=== PATIENT | male | born 1950 | race Caucasian/White ===

== ENCOUNTER 2018-07-10 12:15 | Outpatient (CLI) | payer MEDICARE | END 2018-07-10 12:16 | disposition home or self-care (01) | LOC: ULT 12:15 | PROVIDERS: ATTEND Family Medicine | DX: R42 Dizziness and giddiness (principal); R06.02 Shortness of breath; I08.8 Other rheumatic multiple valve diseases | CPT/HCPCS: 93306 ==

== ENCOUNTER 2018-10-26 20:17 | Inpatient (IN) | payer MEDICARE ==
[2018-10-26] MEDS ORDERED: Enoxaparin Sodium 80 MG/0.8 ML SYRINGE ONE (21:13)
[2018-10-26 22:20] LABS: CKMB 0.7 ng/mL (0-6.6)
[2018-10-27 00:14] VITALS: BMI 27.5
[2018-10-27] MEDS ORDERED: Acetaminophen 325 MG TAB PO PRN (00:40)
[2018-10-27] MEDS ORDERED: Ondansetron ODT 4 MG TAB SL PRN (00:40)
[2018-10-27] MEDS ORDERED: Ondansetron PF 4 MG/2 ML Vial IVP PRN (00:40)
[2018-10-27 01:00] LABS: Troponin I 0.196 ng/mL (< 0.028)
[2018-10-27 05:29] LABS: Troponin I 0.169 ng/mL (< 0.028)
[2018-10-27] MEDS ORDERED: Levothyroxine Sodium 100 MCG TAB PO SCH (09:00)
--- NOTE | 2018-10-27 09:27 | HP ---
PRIMARY CARE PHYSICIAN: Maicol Rowell MD CHIEF COMPLAINT: Abdominal pain and dark stools, found to have abnormal cardiac enzymes. HISTORY OF PRESENT ILLNESS: This is a 67-year-old gentleman with a history of skin cancer, history of squamous cell throat cancer, hyperlipidemia, and hypothyroidism, who presented to the emergency department last night with complaints of persistent abdominal pain, occasional loose stool and black stool. Of note, the patient was seen by his primary care physician on 10/11/2018. For an ear infection, he was prescribed cefdinir and ear drops at that time. From the antibiotics, he developed abdominal pain, black stool, and diarrhea as well as fever. He finished those antibiotics about 9 days ago, but continued to have this symptoms. He presented to the emergency department late last night. Evaluation was done. Per the emergency room physician, the guaiac stool was negative. His abdomen was benign, but he did have elevated troponins and abnormal EKG. He has a strong family history of heart disease as well as his hyperlipidemia and he is now being admitted for non-ST elevation LA. PAST MEDICAL HISTORY: Hyperlipidemia, skin cancer, throat cancer status post radiation therapy, and hypothyroidism. MEDICATIONS: Include; 1. Crestor 5 mg daily. 2. Synthroid 100 mcg daily. PAST SURGICAL HISTORY: Appendectomy and tonsillectomy. FAMILY HISTORY: Father from myocardial infarction at age 72. Brother with LA at 68. Uncle with an LA at 69. 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 Quit smoking in 2008 after smoking for 20 years. Rare alcohol. 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 REVIEW OF SYSTEMS: As per the History of Present Illness. GENERAL: He denies any fevers or chills at this time. HEENT: Recent ear infection, doing much better. No headache. CARDIAC: He denies chest pain, shortness of breath, or palpitations. PULMONARY: He denies cough or hemoptysis. GASTROINTESTINAL: As per the History of Present Illness with recent episode of abdominal pain, diarrhea, and dark stool. GASTROINTESTINAL: Denies dysuria or hematuria. NEUROLOGIC: Denies weakness, seizure, or syncope. PHYSICAL EXAMINATION: VITAL SIGNS: Temperature 98.1, pulse of 69, respirations 18, blood pressure 128/74, and pulse ox is 96% on room air. GENERAL: He is awake and alert, in no acute distress. Speech is clear. NECK: Supple with postsurgical changes. HEART: Regular rate and rhythm without murmurs. LUNGS: Clear bilaterally. ABDOMEN: Soft, nontender, and nondistended. EXTREMITIES: No clubbing, cyanosis, or edema. 2+ peripheral pulses bilaterally. NEUROLOGIC: Cranial nerves II through XII are grossly intact. LABORATORY DATA: Troponin I #1 is 0.213, #2 is 0.196, and #3 is 0.169. White blood cell count 9.0, hemoglobin and hematocrit 13.9 and 42.2, and platelets of 144. PT and PTT were normal. Sodium 136, potassium 4.2, chloride 101, CO2 of 25, BUN and creatinine of 12 and 1.22 with a GFR of 59, lactate of 1.4. Last total cholesterol was 249 with an LDL of 175, HDL of 39. TSH most recently was 2.1. IMAGING DATA: Abdominal and pelvic CT done in [place] revealed normal with no acute changes. Echocardiogram done in June of 2018 revealed ejection fraction of 40% to 45%, global hypokinesis, mild mitral regurgitation, mild tricuspid regurgitation, otherwise stable. ASSESSMENT AND PLAN: This is a 67-year-old gentleman with a remote history of a 20-to 30-pack smoking history, strong family history of heart disease as well as hyperlipidemia, now with evidence of a non-ST elevation myocardial infarction. 1. Non-ST elevation myocardial infarction. Cardiology is being consulted. We will keep the patient n.p.o. in case we were able to do a heart catheterization today for further risk stratification. 2. Hyperlipidemia. We will continue Crestor. May need to increase dosage if catheterization is positive for coronary artery disease. 3. Hypothyroidism. We will continue his replacement. Job ID: [id number]
--- NOTE | 2018-10-27 18:34 | NM ---
CARDIAC SPECT: History: 61-year-old male with elevated troponin, hypercholesterolemia. Former smoker. Technique: Myocardial perfusion scan was performed after the intravenous administration of Technetium 99M Sestamibi. 9 mCi was administered for the rest exam followed by 27 mCi for stress study. Exercis e stress portion of the study was monitored by Dr. White. FINDINGS: Fixed defect is seen in the inferior lateral wall. No reversible defects are identified. LVEF is 40%. There is Inferolateral wall hypokinesis. IMPRESSION: No evidence of reversible ischemia. POS: ARLIN
[2018-10-27] MEDS ORDERED: Communication Order-Pharmacy FS SCH (19:00)
--- NOTE | 2018-10-27 19:49 | CON ---
DATE OF CONSULTATION: HISTORY OF PRESENT ILLNESS: The patient is a 67-year-old gentleman, who was admitted with abdominal discomfort and found to have an abnormal troponin level. The patient has no previous cardiac history. He states that he recently had an earache and he was started on antibiotics. He subsequently developed dark tarry stool and abdominal discomfort. He presented to the emergency room and he was noted to have slightly elevated troponin level and admitted for further evaluation. The patient denies any history of chest discomfort. The patient denies having any dyspnea. The patient does have several cardiac risk factors including dyslipidemia and a strong family history of coronary artery disease. PAST MEDICAL HISTORY: 1. Dyslipidemia. 2. History of throat carcinoma. 3. Thyroid disorder. PAST SURGICAL HISTORY: 1. Appendectomy. 2. Tonsillectomy. SOCIAL HISTORY: Nonsmoker. FAMILY HISTORY: Strong family history of coronary artery disease. ALLERGIES: COCONUT, LIPITOR, AND ERYTHROMYCIN. REVIEW OF SYSTEMS: Ten-point system is otherwise unremarkable except for diarrhea, dark stool, and low-grade fever. PHYSICAL EXAMINATION: GENERAL: This is a well-developed gentleman, in no acute distress. VITAL SIGNS: Blood pressure 135/70. NECK: No jugular venous distention. LUNGS: Clear to auscultation. HEART: Regular rate and rhythm. Normal S1, S2. No murmurs. ABDOMEN: Nondistended. EXTREMITIES: No edema. VASCULAR: Radial pulses are 2+. LABORATORY AND DIAGNOSTIC RESULTS: Sodium 136, potassium 4.2, chloride 101, bicarbonate 25, BUN 12, creatinine 1.2. Troponin was 0.213 with an MB of 0.7. His EKG revealed him to have normal sinus rhythm with an incomplete right bundle branch and Q-wave suggestive of previous inferior infarct. IMPRESSION: 1. Abdominal discomfort. 2. Indeterminate troponin with normal CPK-MB. 3. History of mild decrease in left ventricular systolic function on echocardiogram. 4. Abnormal ECG suggestive of previous inferior infarct. 5. Dyslipidemia. 6. History of tobacco abuse. This gentleman presents with abdominal discomfort and has an indeterminate troponin level. There is suggestive evidence of an old inferior infarct on his electrocardiogram. This patient is asymptomatic and would recommend stress testing to delineate his left ventricular function if there is no any evidence of ischemia. The patient should continue on low-dose aspirin. PLAN: Proceed with Cardiolite stress testing. Job ID: [id number] [facility]
[2018-10-27] MEDS: Rosuvastatin 10 MG TAB PO SCH (20:31)
[2018-10-27] MEDS ORDERED: Rosuvastatin 5 MG TAB PO SCH (21:00)
[2018-10-28] MEDS: Lisinopril 2.5 MG TAB PO SCH (05:04)
[2018-10-28] MEDS: Levothyroxine Sodium 100 MCG TAB PO SCH (05:04)
[2018-10-28] MEDS: Carvedilol 3.125 MG TAB PO SCH ×2 (05:05→17:48)
[2018-10-28] MEDS: Aspirin Chewable 81 MG TAB PO SCH (05:05)
[2018-10-28] MEDS ORDERED: Iopamidol 370 76% 100 ML VIAL ONE (07:26)
[2018-10-28] MEDS ORDERED: Iopamidol 370 76% 50 ML VIAL FS ONE (07:26)
[2018-10-28] MEDS ORDERED: Midazolam HCl 2 mg/2 ml Vial ONE (09:04)
[2018-10-28] MEDS ORDERED: Heparin 10,000 UNITS/1 ML VIAL ONE (09:42)
[2018-10-28] MEDS ORDERED: Nitroglycerin 100MG/250ML BOT 250 ML ONE (09:42)
[2018-10-28] MEDS ORDERED: TICAGRELOR 90 MG TABLET ONE (09:50)
[2018-10-28] MEDS ORDERED: Morphine 2 MG/ML SYRINGE SLOW IVP PRN (10:08)
[2018-10-28] MEDS ORDERED: Nitroglycerin 0.4 MG TAB (25 Tab Bottle) SL PRN (10:08)
[2018-10-28] MEDS ORDERED: Sodium Chloride 0.9% 1,000 ML IV SCH (10:15)
--- NOTE | 2018-10-28 12:15 | PRG ---
DATE OF SERVICE: 10/28/2018 SUBJECTIVE: Mr. Mejia has successfully undergone cardiac cath with stent procedure done a few minutes ago. He reports he is feeling well. No medical complaints, otherwise noted. OBJECTIVE: LUNGS: Clear. HEART: Reveals a regular rate and rhythm. No murmurs, gallops, or rubs. IMPRESSION: Atherosclerotic coronary artery disease, status post stent placement. PLAN: The patient will be maintained in the hospital per Cardiology and will be discharged safely. Job ID: [id number]
[2018-10-28] MEDS: Acetaminophen 325 MG TAB PO PRN (17:31)
[2018-10-28 18:05] LABS: #Eosinphils 0.1 thou/uL (0.0-0.7); #Lymphocytes 0.5 thou/uL (1.20-3.40); #Monocytes 0.5 thou/uL (0.11-0.59); %Eosinophils 1.6 % (0.0-10.0); %Lymphocytes 6.1 % (21.0-51.0); %Monocytes 6.4 % (0.0-10.0); %Neutrophils 85.9 % (42.0-75.0); Hemoglobin 14.1 g/dL (14.0-18.0); Mean Corpuscular HGB CONC 33.5 g/dL (32.0-36.0); Mean Corpuscular Hemoglobin 27.5 pg (27.0-31.0); Mean Corpuscular Volume 82.1 fL (78.0-98.0); Mean Platelet Volume 7.4 fL (7.4-10.4); Platelet Count 136 thou/uL (130-400); RBC Distribution Width 15.1 % (11.5-14.5); Red Blood Cell (RBC) Count 5.12 mill/uL (4.70-6.10); White Blood Cell (WBC) Count 8.2 thou/uL (4.8-10.8)
[2018-10-28] MEDS: Rosuvastatin 10 MG TAB PO SCH (21:34)
[2018-10-29] MEDS: Acetaminophen 325 MG TAB PO PRN (02:32)
[2018-10-29] MEDS ORDERED: Sodium Chloride 0.9% 1,000 ML IV SCH ×2 (04:15→05:00)
[2018-10-29 05:09] LABS: #Eosinphils 0.1 thou/uL (0.0-0.7); #Lymphocytes 0.6 thou/uL (1.20-3.40); #Monocytes 0.5 thou/uL (0.11-0.59); #Neutrophils 5.6 thou/uL (1.40-6.50); %Basophils 0.2 % (0.0-1.0); %Lymphocytes 8.1 % (21.0-51.0); %Monocytes 7.8 % (0.0-10.0); %Neutrophils 82.9 % (42.0-75.0); Hemoglobin 12.9 g/dL (14.0-18.0); Mean Corpuscular HGB CONC 34.6 g/dL (32.0-36.0); Mean Corpuscular Hemoglobin 27.9 pg (27.0-31.0); Mean Corpuscular Volume 80.7 fL (78.0-98.0); Mean Platelet Volume 7.6 fL (7.4-10.4); Platelet Count 132 thou/uL (130-400); Red Blood Cell (RBC) Count 4.64 mill/uL (4.70-6.10); White Blood Cell (WBC) Count 6.8 thou/uL (4.8-10.8)
[2018-10-29 05:33] LABS: ALT (SGPT) 23 U/L (8-55); AST (SGOT) 21 U/L (5-34); Albumin 3.6 g/dL (3.4-4.8); Alkaline Phosphatase 59 U/L (40-150); Anion Gap 10 mmol/L (10-20); BUN (Urea Nitrogen) 12 mg/dL (8.4-25.7); Bilirubin, Total 1.4 mg/dL (0.2-1.2); Calc. Creatinine Clearance 75 mL/min (70-130); Carbon Dioxide 26 mmol/L (23-31); Chloride 98 mmol/L (98-107); Estimated GFR-MDRD 64; Globulin 2.7 g/dL (2.4-3.5); Glucose 111 mg/dL (80-115); Potassium 3.6 mmol/L (3.5-5.1); Protein, Total 6.3 g/dL (5.8-8.1); Sodium 130 mmol/L (136-145)
[2018-10-29] MEDS: Levothyroxine Sodium 100 MCG TAB PO SCH (05:36)
--- NOTE | 2018-10-29 09:18 | RAD ---
PORTABLE CHEST: HISTORY: Cough and fever. COMPARISON: 07/05/2014 study. FINDINGS: Heart size is within normal limits. There are atherosclerotic changes of the aorta. The lungs are c lear of any infiltrative process. IMPRESSION: No active intrathoracic disease. POS: OFF
[2018-10-29] MEDS: Clopidogrel Bisulfate 75 MG TAB PO SCH (09:36)
[2018-10-29] MEDS: Carvedilol 3.125 MG TAB PO SCH ×2 (09:36→18:31)
[2018-10-29] MEDS: Aspirin Chewable 81 MG TAB PO SCH (09:36)
[2018-10-29] MEDS: Lisinopril 2.5 MG TAB PO SCH (09:37)
[2018-10-29 10:36] LABS: Bilirubin Negative (Negative); Blood, Urine Negative (Negative); Clarity Clear (Clear); Glucose, Urine (Dipstick) Normal (Negative); Leukocyte Negative Leu/uL (Negative); Nitrite Negative (Negative); Protein, Urine (Dipstick) Negative (Neg-Trace); RBC/HPF 0-3 HPF (0-3); Urobilinogen Normal mg/dL (Less than 2); WBC/HPF None Seen HPF (0-3)
[2018-10-29 10:56] LABS: Bacteria/HPF 1+ HPF (None Seen); Urine Culture Reflex No No
[2018-10-29] MEDS: Doxycycline 100 MG CAP PO SCH (20:58)
[2018-10-29] MEDS: Rosuvastatin 10 MG TAB PO SCH (20:58)
--- NOTE | 2018-10-29 22:32 | PRG ---
DATE OF SERVICE: 10/29/2018 HISTORY OF PRESENT ILLNESS: The patient had a fever of 103.3, 1500 hours yesterday. Repeat cultures were drawn, chest x-ray, urinalysis was ordered this morning, all coming back negative and normal. The patient had a CT scan of the abdomen with normal lower lung prior to transfer from [place] as well as normal blood cultures from there. The patient was treated on outpatient basis with Omnicef for otitis externa and media. The patient states he is routinely telling what he could get into out there, feeling better following stent placement. Tolerating medications well. Stools have trended from black and tarry, which were guaiac negative to normal soft and brown this morning. The patient has no acute complaints. PHYSICAL EXAMINATION: VITAL SIGNS: This morning; temperature of 98.5, pulse of 61, respiratory rate 18, oxygen saturation 94% on room air, and blood pressure of 90/55. GENERAL: The patient is alert and oriented, in no acute distress. HEENT: Head is normocephalic and atraumatic. Extraocular movements are intact. Sclerae are white. Oral mucosa is moist. NECK: Supple. HEART: Regular rate and rhythm at time of exam. No murmurs auscultated. LUNGS: Clear to auscultation bilaterally. No rubs or wheezes. ABDOMEN: Soft and nontender. Positive bowel sounds throughout. EXTREMITIES: Lower extremities without cyanosis or edema. NEURO: Speech is normal. No focal deficits. LABORATORY DATA: White blood count of 6.8, hemoglobin of 12.9, and neutrophil percent of 82. ASSESSMENT AND PLAN: Fever of unknown source given recent infection of upper respiratory tract and through the unknown nature. Otherwise, we will treat with doxycycline for atypicals given Omnicef did not fully cover the patient still possible likely stress reaction following stent placement as well. However, more likely the infection triggered the patient's non ST elevation myocardial infarction the last event. The patient adequately hydrated, tolerating diet. We will discontinue IV fluids at this point in time. Continue the patient on beta renetta, aspirin, Plavix, statin, and GINA inhibitor per [facility] protocol. We will discharge the patient on his medications with Cardiology once the initial workup, we would likely plan to discharge home tomorrow after 24 hours fever free and transition the antibiotics precautionary measures. Job ID: [id number]
[2018-10-30] MEDS: Levothyroxine Sodium 100 MCG TAB PO SCH (06:01)
[2018-10-30] MEDS: Carvedilol 3.125 MG TAB PO SCH (08:32)
[2018-10-30] MEDS: Clopidogrel Bisulfate 75 MG TAB PO SCH (08:32)
[2018-10-30] MEDS: Aspirin Chewable 81 MG TAB PO SCH (08:32)
[2018-10-30] MEDS: Doxycycline 100 MG CAP PO SCH (08:32)
[2018-10-30 11:52] VITALS: TEMP 97.8
[2018-10-30] MEDS ORDERED: Lisinopril 2.5 MG TAB PO SCH (12:00)
[2018-10-30 13:57] VITALS: BP 114/56
--- NOTE | 2018-10-31 13:34 | DIS ---
DATE OF ADMISSION: 10/26/2018 DATE OF DISCHARGE: 10/30/2018 PRIMARY CARE PHYSICIAN: Maicol Rowell MD HISTORY OF PRESENT ILLNESS: The patient states that he was fatigued over the last week or so. He had completed antibiotics for a course of right otitis media, but more concerning to him is that he had black tarry stools with abdomen pain. This was guaiac negative in the emergency department. Workup included a troponin which did show positive for elevated troponin. Repeat troponins were increased and the patient was found to have an NSTEMI, evaluated by Cardiology with Dr. Lopez and Dr. White. Stent was placed by Dr. 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 The patient tolerated the procedure well, however, had repeat fevers, two times 103+ during hospitalization with blood cultures negative x2. Chest x-ray normal. Urinalysis normal. Only recent infection as above was right otitis media, approximately 7 to 10 days prior to admission. Given this and the fact that the patient was most recently out in the [place] [facility], started the patient on doxycycline prior to discharge. The patient was ambulatory, feeling well, afebrile for 24 hours prior to discharge. DISCHARGE MEDICATIONS: Include levothyroxine 100 mcg, baby aspirin 81 mg, Coreg 3.125 mg p.o. b.i.d., Plavix 75 mg daily, doxycycline 100 mg one tablet p.o. b.i.d., lisinopril 2.5 mg one tablet p.o. daily, and Crestor 10 mg one tablet p.o. daily. FOLLOWUP: Follow up with myself, Dr. Maicol Rowell in the next week, and with Dr. White in the next month. DISCHARGE CONDITION: The patient is being discharged with outpatient cardiac rehab program, heart healthy diet. ACTIVITY: As tolerated. Cardiology wants no lifting further than 5 pounds for stent precautions until cleared. Job ID: [id number]
--- NOTE | 2018-10-31 16:31 | EKG ---
Test Reason : POST S TENT Blood Pressure : / mmHG Vent. Rate : 059 BPM Atrial Rate : 059 BPM P-R Int : 144 ms QRS Dur : 102 ms QT Int : 434 ms P-R-T Axes : 053 028 -14 degrees QTc Int : 429 ms Sinus bradycardia T wave abnormality, consider inferior ischemia Possible Inferior infarct (cited on or before 26-OCT-2018) Abnormal ECG Confirmed by DALE JACK ([id number]) on 10/31/2018 4:31:18 PM Referred By: ALEJANDRA Confirmed By:DALE JACK
--- NOTE | 2018-10-31 16:33 | EKG ---
Test Reason : Blood Pressure : / mmHG Vent. Rate : 084 BPM Atrial Rate : 084 BPM P-R Int : 130 ms QRS Dur : 086 ms QT Int : 340 ms P-R-T Axes : 051 -37 010 degrees QTc Int : 401 ms Normal sinus rhythm Left axis deviation Inferior infarct , age undetermined cannot be excluded Abnormal ECG Confirmed by DALE JACK ([id number]) on 10/31/2018 4:32:50 PM Referred By: MARIA ESTHER Confirmed By:DALE JACK
--- NOTE | 2018-10-31 16:42 | EKG ---
Test Reason : Blood Pressure : / mmHG Vent. Rate : 060 BPM Atrial Rate : 060 BPM P-R Int : 156 ms QRS Dur : 102 ms QT Int : 438 ms P-R-T Axes : 041 -04 -16 degrees QTc Int : 438 ms Normal sinus rhythm Inferior infarct (cited on or before 26-OCT-2018) Abnormal ECG Confirmed by DALE JACK ([id number]) on 10/31/2018 4:42:03 PM Referred By: ALEJANDRA Confirmed By:DALE JACK
== END 2018-10-30 14:10 | disposition home or self-care (01) | DRG 247 ==
LOC: ERS 20:17 → 2NO 22:27
PROVIDERS: ADMIT Family Medicine; ATTEND Family Medicine
PROC: 4A023N7 Measurement of Cardiac Sampling and Pressure, Left Heart, Percutaneous Approach (ICD-10-PCS; principal; 2018-10-26)
PROC: 027034Z Dilation of Coronary Artery, One Artery with Drug-eluting Intraluminal Device, Percutaneous Approach (ICD-10-PCS; 2018-10-26)
PROC: B2111ZZ Fluoroscopy of Multiple Coronary Arteries using Low Osmolar Contrast (ICD-10-PCS; 2018-10-26)
PROC: B2151ZZ Fluoroscopy of Left Heart using Low Osmolar Contrast (ICD-10-PCS; 2018-10-26)
DX: I21.4 Non-ST elevation (NSTEMI) myocardial infarction (principal); C79.89 Secondary malignant neoplasm of other specified sites; I25.10 Atherosclerotic heart disease of native coronary artery without angina pectoris; E03.9 Hypothyroidism, unspecified; E78.5 Hyperlipidemia, unspecified; E78.00 Pure hypercholesterolemia, unspecified; C44.92 Squamous cell carcinoma of skin, unspecified; Z90.49 Acquired absence of other specified parts of digestive tract; Z88.1 Allergy status to other antibiotic agents; Z88.8 Allergy status to other drugs, medicaments and biological substances
CPT/HCPCS: 36415; 71045; 78452; 80053; 81001; 82274; 82553; 84484; 85025; 85347; 87040; 92928; 93005; 93010; 93017; 93458; 93798; 96372; 99152; 99153; A9500; C1769; C1874; C1887; C9600; J1644; J1650; J2250; J2270; Q9967